=== PATIENT | female | born 1985 | race Caucasian/White ===

== ENCOUNTER 2022-01-10 17:03 | Emergency (ER) | payer MEDICAID ==
[~2022-01-10] VITALS: Ht 165.1 cm; Wt 69.4 kg
[2022-01-10 18:15] LABS: Basophils # (auto) 0 10 ^3/uL (0-0.2); Basophils % (auto) 0.3 % (0.0-2.0); Eosinophils # (auto) 0.2 10 ^3/uL (0-0.8); Hematocrit 34.9 % (36.0-46.0); Hemoglobin 12.2 g/dL (12.2-16.2); Lymphocytes # (auto) 2.2 10 ^3/uL (0.4-5.4); Lymphocytes % (auto) 23.1 % (10.0-50.0); Mean Corpuscular Hemoglobin 32.3 pg (28.0-32.0); Mean Corpuscular Volume 92.2 fL (80.0-100.0); Monocytes # (auto) 0.5 10 ^3/uL (0-1.3); Monocytes % (auto) 5.3 % (0.0-12.0); Neutrophils # (auto) 6.5 10 ^3/uL (1.6-8.6); Neutrophils % (auto) 69.3 % (37.0-80.0); Red Blood Cells 3.79 10^6/uL (4.0-5.20); Red Cell Distribution Width 13.5 % (11.8-14.3); White Blood Cell 9.4 10^3/uL (4.4-10.8)
[2022-01-10 18:25] LABS: Urine Bacteria MANY /hpf (None Seen); Urine Blood 2+ /uL (Negative); Urine Mucus FEW (None Seen); Urine Specific Gravity 1.015 (1.001-1.035); Urine WBC 10 /hpf (0 - 5)
[2022-01-10 18:32] LABS: Albumin 3.1 g/dL (3.4-5.0); BUN/Creatinine Ratio 18.5; Calcium 8.5 mg/dL (8.5-10.1); Potassium 3.6 mmol/L (3.5-5.1)
[2022-01-10 18:33] LABS: INR 0.94 (0.9-1.15); Partial Thromboplastin Time 25.7 sec (23.6-33.0)
[2022-01-10 18:35] LABS: Bilirubin, Total 0.3 mg/dL (0.2-1.0); Total Protein 6.8 g/dL (6.4-8.2)
[2022-01-10] MEDS ORDERED: NITR-87 PO (20:34)
[2022-01-10 20:46] VITALS: BP 110/69
== END 2022-01-10 20:48 | disposition home or self-care (01) ==
LOC: ER 17:03
DX: O23.42 Unspecified infection of urinary tract in pregnancy, second trimester (principal); N39.0 Urinary tract infection, site not specified; Z3A.16 16 weeks gestation of pregnancy
CPT/HCPCS: 36415; 76805; 80053; 81001; 84702; 85025; 85610; 85730

== ENCOUNTER 2022-02-05 14:59 | Emergency (ER) | payer MEDICAID ==
[~2022-02-05] VITALS: Ht 165.1 cm; Wt 70.8 kg
[~2022-02-05 14:59] MED LIST: NITR-87 PO
[2022-02-05] MEDS ORDERED: SODIUM CHLORIDE 0.9% 1,000 ML IV ONE ×4 (15:15→23:15)
[2022-02-05] MEDS ORDERED: ONDANSETRON HCL 4 MG/2 ML VIAL IV ONE ×2 (15:30→22:45)
[2022-02-05] MEDS ORDERED: MORPHINE SULFATE 4 MG/ML SYR/VIAL IV ONE ×2 (15:30→22:45)
[2022-02-05 16:00] LABS: Albumin 3.1 g/dL (3.4-5.0); Calcium 9.2 mg/dL (8.5-10.1); Potassium 3.8 mmol/L (3.5-5.1)
[2022-02-05 16:03] LABS: Basophils # (auto) 0 10 ^3/uL (0-0.2); Basophils % (auto) 0.2 % (0.0-2.0); Eosinophils # (auto) 0.1 10 ^3/uL (0-0.8); Eosinophils % (auto) 1.3 % (0.0-7.0); Hematocrit 34.7 % (36.0-46.0); Hemoglobin 12.2 g/dL (12.2-16.2); Lymphocytes # (auto) 2.3 10 ^3/uL (0.4-5.4); Lymphocytes % (auto) 22.1 % (10.0-50.0); Mean Corpuscular Hemoglobin 32.5 pg (28.0-32.0); Mean Corpuscular Volume 92.7 fL (80.0-100.0); Monocytes # (auto) 0.6 10 ^3/uL (0-1.3); Monocytes % (auto) 5.4 % (0.0-12.0); Neutrophils # (auto) 7.5 10 ^3/uL (1.6-8.6); Nucleated Red Blood Cells % 0.1 %; Red Blood Cells 3.75 10^6/uL (4.0-5.20); Red Cell Distribution Width 13.1 % (11.8-14.3); White Blood Cell 10.5 10^3/uL (4.4-10.8)
[2022-02-05 16:04] LABS: BUN/Creatinine Ratio 19.6
[2022-02-05 16:06] LABS: Bilirubin, Total 0.3 mg/dL (0.2-1.0); Total Protein 6.9 g/dL (6.4-8.2)
[2022-02-05] MEDS ORDERED: PROMETHAZINE HCL 25 MG/ML 1ML IV ONE (17:15)
[2022-02-05] MEDS ORDERED: MORPHINE SULFATE INJECTION 2 MG/ML SYRG IV ONE (17:15)
[2022-02-05 18:40] LABS: Urine Bacteria FEW /hpf (None Seen); Urine Blood Negative /uL (Negative); Urine Mucus FEW (None Seen); Urine Specific Gravity 1.026 (1.001-1.035); Urine WBC 5 /hpf (0 - 5)
[2022-02-05] MEDS ORDERED: CYCLOBENZAPRINE HCL 10 MG TAB PO ONE (20:00)
[2022-02-05] MEDS ORDERED: ACETAMINOPHEN 650 mg PER 20.3 mL UD PO ONE (20:00)
[2022-02-05] MEDS ORDERED: OXYCODONE W/ ACETAMINOPHEN 5/325MG TABLET PO ONE (21:30)
[2022-02-06] MEDS ORDERED: PERCOT PO (00:15)
[2022-02-06] MEDS ORDERED: CYCL-837 PO (00:15)
[2022-02-06 00:37] VITALS: BP 96/61
[2022-02-06] MEDS ORDERED: MORPHINE SULFATE 4 MG/ML SYR/VIAL IV ONE (02:00)
== END 2022-02-06 00:57 | disposition home or self-care (01) ==
LOC: ER 14:59
DX: O26.892 Other specified pregnancy related conditions, second trimester (principal); R10.9 Unspecified abdominal pain; Z79.899 Other long term (current) drug therapy; Z3A.19 19 weeks gestation of pregnancy; Z20.822 Contact with and (suspected) exposure to COVID-19
CPT/HCPCS: 36415; 76775; 76805; 80053; 81001; 84702; 85025; 87426; 96361; 96374; 96375; 96376; 99285; J2270; J2405; J2550; J7030

== ENCOUNTER → 2022-02-07 | Outpatient (CLI) | payer MEDICAID ==
[~2022-02-07] MED LIST changes: +CYCL-837 PO; +PERCOT PO
[2022-02-07 12:52] LABS: Urine Bacteria FEW /hpf (None Seen); Urine Blood Negative /uL (Negative); Urine Mucus FEW (None Seen); Urine Specific Gravity 1.019 (1.001-1.035); Urine WBC 3 /hpf (0 - 5)
== END | disposition home or self-care (01) ==
LOC: LAB 11:27
PROVIDERS: ATTEND Obstetrics & Gynecology
DX: Z34.80 Encounter for supervision of other normal pregnancy, unspecified trimester (principal); N39.0 Urinary tract infection, site not specified
CPT/HCPCS: 81001; 87086

== ENCOUNTER 2022-11-04 15:32 | Emergency (ER) | payer MEDICAID ==
[~2022-11-04] VITALS: Ht 165.1 cm; Wt 67.5 kg
[2022-11-04 22:11] VITALS: BP 123/90
[2022-11-04] MEDS ORDERED: AMOX-277 PO (22:27)
[2022-11-04] MEDS ORDERED: IBUP800T26 PO (22:27)
[2022-11-04] MEDS ORDERED: TETANUS-DIPTH-ACEL PERTUSSIS 0.5ML SYR Tdap IM ONE (22:30)
== END 2022-11-04 22:39 | disposition home or self-care (01) ==
LOC: ER 15:32
DX: S91.332A Puncture wound without foreign body, left foot, initial encounter (principal); X58.XXXA Exposure to other specified factors, initial encounter; Y93.89 Activity, other specified; Y92.89 Other specified places as the place of occurrence of the external cause; Y99.8 Other external cause status
CPT/HCPCS: 90471; 90715

== ENCOUNTER 2025-03-05 10:09 | Outpatient (CLI) | payer MEDICAID ==
[~2025-03-05] VITALS: Ht 165.1 cm; Wt 68.0 kg
[~2025-03-05 10:09] MED LIST changes: +AMOX875T4 PO; +IBUP-1455 PO
--- NOTE | 2025-03-05 12:49 | DVHCARD ---
Cardiology Stress Test [place] Treadmill Stress Test [place] Referring MD: MD Waqas Protocol: Hung (with cardiolite) Reason for referral: Other (Syncope) Target heart Rate:@85%: 155 Percent MPHR: 183 METS: 10.4 Resting Heart rate: 87 Resting Blood Pressure: 128/73 Exercise Heart Rate: 166 Exercise Blood Pressure: 148/80 Baseline EKG: Normal sinus rhythm Stress EKG: Sinus tachycardia Functional Capacity: Good Normal Heart Rate Response: Adequate Blood Pressure Response: Hypertensive Clinical response: Non-ischemic Arrhythmia?: No (Artifact throughout test) Cardiolite Injected?: Yes ST-T Changes: Non/Minimal Probability of Inducible Ische: Perfusion result pending Date of Service: Mar 05, 2025 Billing Provider: MARIA D ARAGON Cardiology Common Codes: PROCEDURE ONLY Treadmill W/Cardiolite Nuclear: [id number], INTERP, RPT MARIA D ARAGON Mar 05, 2025 12:49
--- NOTE | 2025-03-08 09:31 | DVHSR ---
APPROVED REPORT Exam: Nuclear Stress Test BMI: 0 Stress Test Details Stress Test: Exercise stress testing was performed using a Hung protocol. HR Resting HR: 89 bpmMax Heart Rate (APMHR): 183.736735 bpm Max HR Achieved: 166 bpmTarget HR (85% APMHR): 155.973639 bpm % of APMHR: 90.71 Recovery HR: 114 bpm BP Resting BP: 128/73 mmHg Recovery BP: 119/72 mmHg ECG Resting ECG: Sinus Rhythm Clinical Reason for Termination: Completed protocol Exercise duration: 9 min sec Nurse Comments -Recieved ambulatory, A/Ox4 on RA, connected to cardiac tech, VS stable. PIV S/L flushes well, rev iewed POC, pt verbalized understanding. Marko [employer] JOB ESTIMATOR here to monitor exam. Treadmill test performed per protocol. Pt stable, tolerated well, VS returned to baseline. Pt to follow up with chief ultrasound technologist for results. Stress ECG Conclusion lvef 80% normal perfusion scan no ischemia NM EXAM: Myocardial Perfusion REST/STRESS Imaging Protocol: Rest Tc-99m/Stress Tc-99m 1 day Resting Data Rest SPECT myocardial perfusion imaging was performed in supine position 45 minutes following the int ravenous injection of 10.1 mCi of Tc-99m Sestamibi. Time of rest injection: 11:15 Date: 03/05/2025 Time of rest imagin:00 Date: 03/05/2025 The images were gated to evaluate regional wall motion and calculate left ventricular ejection fracti on. Administration Route: IV Administration Site: Right AC Exercise Stress At peak stress, the patient was injected intravenously with 29.2mCi of Tc-99m Sestamibi. Time of stress injection: 12:30 Date: 03/05/2025 Time of stress imagin:15 Date: 03/05/2025 Administration Route: IV Administration Site: Right AC Heart Rate at time of stress injection: 155 bpm. Gated Stress SPECT was performed 45 minutes after stress injection. The images were gated to evaluate regional wall motion and calculate left ventricular ejection fracti on. Stress only was performed in the Supine position. Nuclear Conclusion Nuclear Findings: negative for ischemia lvef 80% normal perfusion scan no ischemia
== END 2025-03-05 17:00 | disposition home or self-care (01) ==
LOC: XYW 10:09
PROVIDERS: ATTEND Internal Medicine
DX: R55 Syncope and collapse (principal)
CPT/HCPCS: 78452; 93017; A9500